=== PATIENT | male | born 1960 | race Caucasian/White ===

== ENCOUNTER 2018-03-27 09:42 | Emergency (ER) | payer MEDICARE ==
[~2018-03-27] VITALS: Ht 167.6 cm; Wt 61.8 kg
[2018-03-27 09:45] VITALS: Ht 167.6 cm; Wt 61.8 kg
[2018-03-27] MEDS ORDERED: XANAX0.5 MG PO (09:47)
[2018-03-27] MEDS ORDERED: ZOCOR40 MG PO (09:47)
[2018-03-27] MEDS ORDERED: METOPROLOL TART25 MG PO (09:47)
[2018-03-27] MEDS ORDERED: SOMA350 MG PO (09:48)
[2018-03-27] MEDS ORDERED: NORCO 10-325 TA1 TAB PO (09:48)
[2018-03-27 13:17] VITALS: BP 119/74
== END 2018-03-27 13:17 | disposition other institution (70) ==
LOC: D.ER 09:42
DX: S82.202A Unspecified fracture of shaft of left tibia, initial encounter for closed fracture (principal); S82.402A Unspecified fracture of shaft of left fibula, initial encounter for closed fracture; V49.9XXA Car occupant (driver) (passenger) injured in unspecified traffic accident, initial encounter; Y93.89 Activity, other specified; Y92.410 Unspecified street and highway as the place of occurrence of the external cause; R51 Headache; F17.200 Nicotine dependence, unspecified, uncomplicated